=== PATIENT | male | born 1950 | race Caucasian/White ===

== ENCOUNTER 2024-09-11 10:04 | Outpatient (CLI) | payer MEDICARE ==
[2024-09-11 11:15] LABS: Estimated GFR - POC 64.0
== END 2024-09-11 10:05 | disposition home or self-care (01) ==
LOC: CSHCT 10:04
PROVIDERS: ATTEND Family Medicine
DX: R93.89 Abnormal findings on diagnostic imaging of other specified body structures (principal); R91.8 Other nonspecific abnormal finding of lung field; J94.8 Other specified pleural conditions
CPT/HCPCS: 71260; 82565